=== PATIENT | female | born 1940 | race Two or more races ===

== ENCOUNTER 2018-04-06 11:30 | Emergency (ER) | payer OTHER ==
[~2018-04-06] VITALS: Ht 152.4 cm; Wt 71.7 kg
[~2018-04-06 11:30] MED LIST: HYZAAR 100-251 UDTAB; INTESTINEX1 CA1 PO; LANTUS100 U/ML; LOPERAMIDE2 MG PO
[2018-04-06] MEDS ORDERED: CIPRODEX OTIC7.5 ML OT (13:48)
[2018-04-06] MEDS ORDERED: KETO10TA2 PO (13:48)
== END 2018-04-06 13:54 | disposition home or self-care (01) ==
LOC: ER 11:30
DX: H66.91 Otitis media, unspecified, right ear (principal)

== ENCOUNTER 2018-04-29 12:37 | Inpatient (IN) | payer OTHER ==
[~2018-04-29] VITALS: Ht 152.4 cm; Wt 71.7 kg
[~2018-04-29 12:37] MED LIST changes: +CIPRODEX OTIC7.5 ML OT; +KETO10TA2 PO
[2018-06-27] MEDS ORDERED: PLAVIX75 MG PO (16:08)
[2018-06-27] MEDS ORDERED: HYZAAR 100-251 EACH PO (16:09)
[2018-06-27] MEDS ORDERED: GABAPENTIN300 MG PO (16:09)
[2018-06-27] MEDS ORDERED: FOLIC ACID1 MG PO (16:10)
[2018-06-27] MEDS ORDERED: METROTEXATE PO (16:10)
[2018-06-27] MEDS ORDERED: SYSTANE 0.3-0.1 EACH OP (16:11)
[2018-07-11] MEDS ORDERED: DOCUSATE SODIU100 MG PO (10:36)
[2018-07-11] MEDS ORDERED: GABAPENTIN800 MG PO (10:36)
[2018-07-11] MEDS ORDERED: CLONAZEPAM0.5 M1 PO (10:38)
[2018-07-11] MEDS ORDERED: PERCOCET 5-3251 EACH PO (10:38)
[2018-07-11] MEDS ORDERED: AMOX-CLAV 875-1 EACH PO (10:38)
[2018-07-11] MEDS ORDERED: ZOFRAN ODT4 MG PO (12:25)
== END 2018-07-11 13:58 | disposition home or self-care (01) | DRG 455 ==
LOC: SURH 07-04 11:00 → O/R 07-10 04:20 → SURG 07-10 10:35
PROVIDERS: ADMIT Orthopaedic Surgery Orthopaedic Surgery of the Spine
PROC: 0SG0071 Fusion of Lumbar Vertebral Joint with Autologous Tissue Substitute, Posterior Approach, Posterior Column, Open Approach (ICD-10-PCS; 2018-07-10)
PROC: 0SG00AJ Fusion of Lumbar Vertebral Joint with Interbody Fusion Device, Posterior Approach, Anterior Column, Open Approach (ICD-10-PCS; 2018-07-10)
PROC: 0ST20ZZ Resection of Lumbar Vertebral Disc, Open Approach (ICD-10-PCS; 2018-07-10)
PROC: 07DS3ZZ Extraction of Vertebral Bone Marrow, Percutaneous Approach (ICD-10-PCS; 2018-07-10)
PROC: 4A12X4Z Monitoring of Cardiac Electrical Activity, External Approach (ICD-10-PCS; 2018-07-10)
PROC: 0SG00A0 Fusion of Lumbar Vertebral Joint with Interbody Fusion Device, Anterior Approach, Anterior Column, Open Approach (ICD-10-PCS; principal; 2018-07-10 14:00)
DX: M43.16 Spondylolisthesis, lumbar region (principal); M48.062 Spinal stenosis, lumbar region with neurogenic claudication; M51.16 Intervertebral disc disorders with radiculopathy, lumbar region; M06.89 Other specified rheumatoid arthritis, multiple sites; E11.9 Type 2 diabetes mellitus without complications; I10 Essential (primary) hypertension

== ENCOUNTER 2018-07-21 11:35 | Emergency (ER) | payer OTHER ==
[~2018-07-21] VITALS: Ht 152.4 cm; Wt 71.7 kg
[~2018-07-21 11:35] MED LIST changes: +AMOX-CLAV 875-1 EACH PO; +CLONAZEPAM0.5 M1 PO; +DOCUSATE SODIU100 MG PO; +FOLIC ACID1 MG PO; +GABAPENTIN300 MG PO; +GABAPENTIN800 MG PO; +HYZAAR 100-251 EACH PO; +METROTEXATE PO; +PERCOCET 5-3251 EACH PO; +PLAVIX75 MG PO; +SYSTANE 0.3-0.1 EACH OP; +ZOFRAN ODT4 MG PO
[2018-07-21] MEDS ORDERED: HUMULIN 70100 UNIT/2 (11:50)
== END 2018-07-21 15:28 | disposition home or self-care (01) ==
LOC: ER 11:35
DX: M54.32 Sciatica, left side (principal); E11.65 Type 2 diabetes mellitus with hyperglycemia

== ENCOUNTER 2018-08-09 13:59 | Inpatient (IN) | payer OTHER ==
[~2018-08-09] VITALS: Ht 165.1 cm; Wt 71.7 kg
[~2018-08-09 13:59] MED LIST changes: +HUMULIN 70100 UNIT/2
[2018-08-12] MEDS ORDERED: METHOTREXA25 MG/1 M7 IJ (08:28)
[2018-08-13] MEDS ORDERED: GABAPENTIN800 MG PO (15:31)
[2018-08-13] MEDS ORDERED: ACETAMINOPHEN-1 EAC2 PO (15:31)
== END 2018-08-13 17:45 | disposition home or self-care (01) | DRG 552 ==
LOC: ER 13:59 → SURH 18:16
PROVIDERS: ADMIT Orthopaedic Surgery Orthopaedic Surgery of the Spine
PROC: BR39ZZZ Magnetic Resonance Imaging (MRI) of Lumbar Spine (ICD-10-PCS; principal; 2018-08-10)
DX: M48.061 Spinal stenosis, lumbar region without neurogenic claudication (principal); G89.18 Other acute postprocedural pain; M54.89 Other dorsalgia; E11.65 Type 2 diabetes mellitus with hyperglycemia; A08.8 Other specified intestinal infections; M06.89 Other specified rheumatoid arthritis, multiple sites
CPT/HCPCS: 72148

== ENCOUNTER 2022-11-07 19:46 | Emergency (ER) | payer OTHER ==
[~2022-11-07] VITALS: Ht 152.4 cm; Wt 72.6 kg
[~2022-11-07 19:46] MED LIST changes: +ACETAMINOPHEN-1 EAC2 PO; +METHOTREXA25 MG/1 M7 IJ
[2022-11-07] MEDS ORDERED: METOPROLOL SUCC25 MG PO (20:27)
== END 2022-11-08 15:31 | disposition home or self-care (01) ==
LOC: ER 19:46
DX: R10.9 Unspecified abdominal pain (principal)